=== PATIENT | female | born 1945 | race Caucasian/White ===

== ENCOUNTER → 2016-09-10 | Outpatient (CLI) | payer MEDICARE ==
[~2016-09-10] MED LIST: POTA10TA90 PO
== END | disposition home or self-care (01) ==
LOC: CFH 11:12
PROVIDERS: ATTEND Internal Medicine
DX: M85.88 Other specified disorders of bone density and structure, other site (principal); N95.9 Unspecified menopausal and perimenopausal disorder
CPT/HCPCS: 77080

== ENCOUNTER 2017-11-11 13:58 | Emergency (ER) | payer MEDICARE ==
[~2017-11-11] VITALS: Ht 172.7 cm; Wt 87.0 kg
[~2017-11-11 13:58] MED LIST changes: +POTA10TA6 PO; -POTA10TA90 PO
[2017-11-11] MEDS ORDERED: ASPIRIN 81 MG TABLET CHEW PO ONE (14:30)
[2017-11-11 14:48] LABS: BASOPHILS # (AUTO) 0.03 x10^3/uL (0-0.1); BASOPHILS % (AUTO) 0 % (0-1); EOSINOPHILS # (AUTO) 0.07 x10^3/uL (0-0.4); EOSINOPHILS % (AUTO) 1 % (1-7); LYMPHOCYTES # (AUTO) 1.64 x10^3/uL (1-3.4); LYMPHOCYTES % (AUTO) 22 % (22-44); MD NO; MEAN CORPUSCULAR HEMOGLOBIN 29.5 pg (27.0-34.8); MEAN CORPUSCULAR HGB CONC 33.5 g/dL (32.4-35.8); MEAN CORPUSCULAR VOLUME 88.1 fL (80-100); MEAN PLATELET VOLUME 6.8 fL (7.4-10.4); MONOCYTES # (AUTO) 0.49 x10^3/uL (0.2-0.8); MONOCYTES % (AUTO) 7 % (2-9); NEUTROPHILS # (AUTO) 5.17 x10^3/uL (1.8-6.8); NEUTROPHILS % (AUTO) 70 % (42-75); PLATELET COUNT 403 x10^3/uL (130-400); RED BLOOD COUNT 5.02 x10^6/uL (3.82-5.3); RED CELL DISTRIBUTION WIDTH 14.9 % (9.6-15.2)
[2017-11-11] MEDS ORDERED: KETOROLAC 30 MG/1 ML ONE (14:59)
[2017-11-11 15:00] LABS: ALBUMIN 3.9 g/dL (3.4-5.0); ANION GAP 9 mmol/L (5-15); CALCIUM 9.1 mg/dL (8.5-10.1); CHLORIDE 110 mmol/L (98-107)
[2017-11-11] MEDS ORDERED: KETOROLAC 30 MG/1 ML IM ONE (15:00)
[2017-11-11] MEDS ORDERED: ASPIRIN 81 MG TABLET CHEW ONE (15:00)
[2017-11-11 15:06] LABS: ALANINE AMINOTRANSFERASE 26 U/L (12-78); ALKALINE PHOSPHATASE 69 U/L (45-117); BILIRUBIN,TOTAL 0.6 mg/dL (0.2-1.0); CREATININE 0.68 mg/dL (0.55-1.02); TOTAL PROTEIN 7.3 g/dL (6.4-8.2); TROPONIN I < 0.015 ng/mL (0.000-0.045)
[2017-11-11 16:15] VITALS: BP 144/78
== END 2017-11-11 16:17 | disposition home or self-care (01) ==
LOC: ED 16:05
DX: S29.011A Strain of muscle and tendon of front wall of thorax, initial encounter (principal); R07.2 Precordial pain; X58.XXXA Exposure to other specified factors, initial encounter; Y93.89 Activity, other specified; Y92.89 Other specified places as the place of occurrence of the external cause; Y99.8 Other external cause status
CPT/HCPCS: 36415; 71045; 80053; 84484; 85025; 93005; 96372; 99285; J1885

== ENCOUNTER → 2018-03-26 | Outpatient (CLI) | payer MEDICARE ==
[~2018-03-26] MED LIST changes: +OMNIPAQUE 350 MG/ML, 100ML BOTTLE ONE
== END | disposition home or self-care (01) ==
LOC: CFH 11:41
PROVIDERS: ATTEND Internal Medicine Gastroenterology
DX: K86.89 Other specified diseases of pancreas (principal); Z90.49 Acquired absence of other specified parts of digestive tract
CPT/HCPCS: 74170; Q9967

== ENCOUNTER → 2018-04-30 | Outpatient (CLI) | payer MEDICARE ==
[~2018-04-30] MED LIST changes: -OMNIPAQUE 350 MG/ML, 100ML BOTTLE ONE
== END | disposition home or self-care (01) ==
LOC: CFH 12:57
PROVIDERS: ATTEND Internal Medicine
DX: N64.4 Mastodynia (principal)
CPT/HCPCS: 76641; 77066; G0279

== ENCOUNTER 2018-07-14 13:33 | Emergency (ER) | payer MEDICARE ==
[~2018-07-14] VITALS: Ht 170.2 cm; Wt 87.0 kg
[2018-07-14 13:38] VITALS: BP 161/78
--- NOTE | 2018-07-14 14:49 | NUR ---
Patient given discharge instructions and they have confirmed that they understand the instructions. Patient ambulatory with steady gait. Pt left with d/c paperwork and all personal belongings.
== END 2018-07-14 14:55 | disposition home or self-care (01) ==
LOC: ED 14:37
DX: S01.91XA Laceration without foreign body of unspecified part of head, initial encounter (principal); I10 Essential (primary) hypertension; W22.8XXA Striking against or struck by other objects, initial encounter; Y93.89 Activity, other specified; Y92.009 Unspecified place in unspecified non-institutional (private) residence as the place of occurrence of the external cause; Y99.8 Other external cause status
CPT/HCPCS: 12001; 99283

== ENCOUNTER 2018-10-20 12:54 | Outpatient (CLI) | payer MEDICARE | END 2018-10-20 23:59 | disposition home or self-care (01) | LOC: CFH 12:54 | DX: F17.201 Nicotine dependence, unspecified, in remission (principal) | CPT/HCPCS: G0297 ==

== ENCOUNTER → 2020-08-01 | Outpatient (CLI) | payer MEDICARE | END | disposition home or self-care (01) | LOC: CFH 13:52 | PROVIDERS: ATTEND Internal Medicine | DX: N64.4 Mastodynia (principal) | CPT/HCPCS: 77062; 77066; G0279 ==